=== PATIENT | female | born 1955 | race Hispanic/Latino ===

== ENCOUNTER 2020-06-04 13:10 | Outpatient (CLI) | payer OTHER ==
--- NOTE | 2020-06-04 14:16 | RAD ---
XR Chest Pa Lat STANDARD HISTORY: Rheumatoid arthritis COMPARISON: 10/06/2015 FINDINGS: The heart size is normal. The lungs are well expanded without focal areas of consolidation, pneumothorax or pleural effusions. IMPRESSION: No radiographic evidence of acute cardiopulmonary process.
--- NOTE | 2020-06-04 14:20 | RAD ---
RIGHT HAND 3 VIEWS: HISTORY: Right hand pain. FINDINGS: Bones appear demineralized. Joint spaces are fairly well preserved without any erosive change. Oste oarthritic changes are noted of the 1st carpometacarpal joint space, triscaphe joint, and distal inte rphalangeal joints. 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 POS: AH
== END 2020-06-04 13:11 | disposition home or self-care (01) ==
LOC: BICRAD 13:10
PROVIDERS: ATTEND Internal Medicine Rheumatology
DX: M05.79 Rheumatoid arthritis with rheumatoid factor of multiple sites without organ or systems involvement (principal); M18.11 Unilateral primary osteoarthritis of first carpometacarpal joint, right hand
CPT/HCPCS: 71046

== ENCOUNTER 2020-06-25 09:51 | Outpatient (CLI) | payer OTHER ==
--- NOTE | 2020-06-25 10:39 | BD ---
EXAM: Bone densitometry using DEXA HISTORY: 64 yo female. Screening for postmenopausal osteoporosis FINDINGS: L1--bone mineral density 1.076 g/sq cm; T score 0.8 ; Z score 2.3 L2--bone mineral density 1.043 g/sq cm; T score 0.1 ; Z score 1.8 L3--bone mineral density 1.192 g/sq cm; T score 1.0 ; Z score 2.7 L4--bone mineral density 1.281 g/sq cm; T score 2.0 ; Z score 3.8 Total L1-L4--bone mineral density 1.156 g/sq cm; T score 1.0 ; Z score 2.6 Left femoral neck--bone mineral density0.923; T score 0.7 ; Z score 2.1 Total proximal left femur--bone mineral density 1.086; T score 1.2 ; Z score 2.3 IMPRESSION: Normal BMD
== END 2020-06-25 09:52 | disposition home or self-care (01) ==
LOC: BICMAMMO 09:51
PROVIDERS: ATTEND Internal Medicine Rheumatology
DX: M81.0 Age-related osteoporosis without current pathological fracture (principal); M05.79 Rheumatoid arthritis with rheumatoid factor of multiple sites without organ or systems involvement
CPT/HCPCS: 77080

== ENCOUNTER 2023-06-26 13:03 | Outpatient (CLI) | payer MEDICARE, MEDICAID | END 2023-06-26 13:04 | disposition home or self-care (01) | LOC: BICMAMMO 13:03 | DX: Z12.31 Encounter for screening mammogram for malignant neoplasm of breast (principal); Z13.820 Encounter for screening for osteoporosis; Z80.3 Family history of malignant neoplasm of breast | CPT/HCPCS: 77067; 77080 ==

== ENCOUNTER 2025-06-15 10:30 | Outpatient (CLI) | payer OTHER | END 2025-06-15 10:31 | disposition home or self-care (01) | LOC: SCSRAD 10:30 | PROVIDERS: ATTEND Orthopaedic Surgery | DX: M54.50 Low back pain, unspecified (principal); Z98.1 Arthrodesis status | CPT/HCPCS: 72100 ==